=== PATIENT | male | born 1960 | race Two or more races ===

== ENCOUNTER 2018-10-07 11:11 | Outpatient (CLI) | payer OTHER | END 2018-10-07 11:22 | disposition home or self-care (01) | LOC: RAD 501 11:11 | DX: J11.1 Influenza due to unidentified influenza virus with other respiratory manifestations (principal); Z78.9 Other specified health status ==

== ENCOUNTER 2019-03-13 10:07 | Outpatient (CLI) | payer OTHER | END 2019-03-13 11:00 | disposition home or self-care (01) | LOC: TOM 10:07 | DX: Z12.2 Encounter for screening for malignant neoplasm of respiratory organs (principal) ==